=== PATIENT | male | born 1950 | race Caucasian/White ===

== ENCOUNTER → 2024-01-26 10:41 | Outpatient (REF) | payer MEDICARE, BC, SELFPAY ==
[2024-01-26 13:06] LABS: ALT (SGPT) 20 U/L (0-50); AST (SGOT) 24 U/L (17-59); Albumin 4.3 g/dl (3.5-5.0); Alkaline Phosphatase 54 U/L (38-126); Blood Urea Nitrogen 22 mg/dl (9-20); Calcium 9.6 mg/dl (8.4-10.2); Carbon Dioxide 25 mmol/L (22-30); Chloride 108 mmol/L (98-107); Glucose 163 mg/dl (70-99); HDL Cholesterol 72 mg/dl; LDL Cholesterol, Calculated 36 mg/dl; Potassium 5.3 mmol/L (3.5-5.1); Sodium 136 mmol/L (135-145); Total Bilirubin 0.5 mg/dl (0.2-1.3); Total Cholesterol 121 mg/dl (50-199); Total Protein 6.7 g/dl (6.3-8.2); Triglyceride 67 mg/dl (10-149); Very Low Density Lipoprotein 13 mg/dl (0-30); eGFR > 60.00
[2024-01-26 13:16] LABS: Microalbumin, Random Urine 9.6 mg/dl (0.6-1.7); Microalbumin/creatinine Ratio 100.3 mg/g
== END ==
LOC: HWLAB 10:41
PROVIDERS: ATTENDING PHYSICIAN Internal Medicine Endocrinology, Diabetes & Metabolism; FAMILY PHYSICIAN Family Medicine
DX: E11.65 Type 2 diabetes mellitus with hyperglycemia (principal); I25.10 Atherosclerotic heart disease of native coronary artery without angina pectoris
CPT/HCPCS: 36415; 80053; 80061; 82043; 82570; 83036

== ENCOUNTER → 2024-02-02 12:35 | Outpatient (REF) | payer MEDICARE, BC, SELFPAY | LOC: HWRCS 12:35 | PROVIDERS: ATTENDING PHYSICIAN Internal Medicine Cardiovascular Disease; FAMILY PHYSICIAN Family Medicine | DX: I35.1 Nonrheumatic aortic (valve) insufficiency (principal) | CPT/HCPCS: 93306 ==

== ENCOUNTER 2024-02-25 20:33 | Observation (INO) | payer MEDICARE, BC, SELFPAY ==
[2024-02-25 15:17] VITALS: BP 151/73
[2024-02-25 15:32] LABS: % Basophils 0.4 % (0-2); % Eosinophils 0.6 % (0-6); % Immature Granulocytes 0.3 % (0-0.5); % Lymphocytes 23.7 % (20.5-51.1); % Monocytes 12.5 % (1.7-9.3); % Neutrophils 62.5 % (42.2-75.2); Absolute Eosinophils 0.1 10^3/uL (0-0.7); Absolute Lymphocytes 1.9 10^3/uL (1.2-3.4); Absolute Neutrophils 4.9 10^3/uL (1.4-6.5); Hematocrit 38.8 % (39.0-52.0); Hemoglobin 13.1 g/dL (13.0-18.0); Mean Corp Hgb Conc. 33.8 g/dL (33.0-37.0); Mean Corpuscular Hgb 30.9 pg (27.0-31.0); Mean Corpuscular Volume 91.5 fL (80.0-94.0); Mean Platelet Volume 10.1 fL (7.4-10.4); Nucleated Red Blood Cells % 0 % (-); Platelet Count 179 10^3/uL (130-400); Red Blood Cell Count 4.24 10^6/uL (4.70-6.10); Red Cell Dist. Width 13.9 % (11.5-14.5); White Blood Cell Count 7.9 10^3/uL (4.8-10.8)
[2024-02-25 15:53] LABS: ALT (SGPT) 17 U/L (0-50); AST (SGOT) 24 U/L (17-59); Albumin 4.7 g/dl (3.5-5.0); Blood Urea Nitrogen 27 mg/dl (9-20); Calcium 9.7 mg/dl (8.4-10.2); Carbon Dioxide 21 mmol/L (22-30); Chloride 103 mmol/L (98-107); Glucose 183 mg/dl (70-99); Lipase 71 U/L (23-300); Potassium 4.6 mmol/L (3.5-5.1); Sodium 135 mmol/L (135-145); Total Protein 7.4 g/dl (6.3-8.2); eGFR 30.47
[2024-02-25 16:03] LABS: Alkaline Phosphatase 48 U/L (38-126); Total Bilirubin 0.7 mg/dl (0.2-1.3)
[2024-02-25] MEDS: NSS 1000 IV ×2 (16:10→23:12)
[2024-02-25] MEDS: ZOFRAN 4 MG IV (16:11)
--- NOTE | 2024-02-25 16:15 | ED.GENMED ---
History of Present Illness
General
Chief Complaint: Medication Reaction
Source: patient and records
Exam Limitations: none
Time Seen by Provider: 02/25/24 15:55
Nursing documentation reviewed up to this point in time: agreed with
Travel History
Have you had any contact with someone who has COVID-19?: No
Do you have any symptoms of coronavirus? Fever > 100 degrees, chills, cough, shortness of breath, sore throat, loss of taste or smell, muscle aches, or headache?: No
History of Present Illness
History of Present Illness:
73-year-old male type II diabetic CAD pacemaker hypertensive has been on Mounjaro took 2 doses since taking 2 weekly doses has had constipation and abdominal pain no fever nausea without vomiting, no diarrhea--- prescribed by his brattice builder, he
has had an appendectomy, still has his gallbladder apparently, he tells me last night pain was fairly severe in his mid abdomen into his low back pains were different than his anginal chest pains that he said previously
Past History
Past History
ED Past Medical History: CAD, HTN, Hypercholesterolemia, NIDDM, [place], Other (Pituitary meningioma), Other (glaucoma, OA,) and Other (BPV)
ED Past Surgical History: Appendectomy and Other (Transsphenoidal resection of a pituitary meningioma)
Social History
Tobacco: Non-smoker
Alcohol: None
Drug: None
Living: with family
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
Family History
Family History: CAD
Review of Systems
Review of Systems
All Other Systems: Not applicable
Constitutional: Denies fever or fatigue
EENT: Reports no symptoms
Respiratory: Reports no symptoms
Cardiac: Reports no symptoms
ABD/GI: Reports abdominal pain, nausea and constipated; Denies diarrhea
: Reports no symptoms
Musculoskeletal: Reports back pain
Skin: Reports no symptoms
Neurological: Reports no symptoms
Phy Exam
Physical Exam
Physical Exam:
Physical Exam
General: Elderly male nontoxic mild distress
Neck: No jaundice
Heart: s1/s2 regular rate and rhythm, no murmur. equal radial pulses.
Lungs: no acute respiratory distress. clear bilaterally
Abdomen: Soft mild lower abdominal tenderness right greater than left
Neuro: alert and oriented. no focal neurological deficits
Skin: no rash
Psychiatric: well kept. interactive and cooperative
Extremities: no edema.
Course
Orders/Labs/Results
Orders:
Orders
02/25/24 15:27
B-Hydroxybutyrate Urgent
Comment: ADD ON
Complete Blood Count/With Diff Urgent
Comprehensive Metabolic Panel Urgent
Lipase Urgent
02/25/24 15:56
Electrocardiogram (*1) Urgent
Reason for Study: Abdominal Pain
EKG- Treatment ONCE
02/25/24 16:02
0.9% Sodium Chloride 1000 ml [Nss] 1,000 ml IV BOLUS
Ondansetron Injectable [Zofran] 4 mg IV NOW STA
02/25/24 16:10
Urinalysis Reflex To Culture Urgent
Date Specimen was Collected: 02/25/24
Time Specimen was Collected: 16:17
02/25/24 16:11
CT Abd/pel Without Iv Or Oral Urgent
Comment:
Reason For Exam: ever pain
US Abdomen Complete/Upper Urgent
Comment:
Reason For Exam: pain
02/25/24 17:35
Add On- LAB Urgent
Tests Added?: Beta hydroxybutyrate
02/25/24 19:31
HYDROmorphone [Dilaudid] 0.5 mg IV NOW STA
02/25/24 19:45
0.9% Sodium Chloride 1000 ml [Nss] 1,000 ml IV 150 mls/hr
Abnormal Lab Results
02/25/24
15:27
RBC 4.24 L 10^6/uL
(4.70-6.10)
Hct 38.8 L %
(39.0-52.0)
Absolute Monos (auto) 1.0 H 10^3/uL
(0.1-0.6)
Monocytes % 12.5 H %
(1.7-9.3)
Carbon Dioxide 21 L mmol/L
(22-30)
BUN 27 H mg/dl
(9-20)
Creatinine 2.2 H mg/dL
(0.7-1.3)
Glucose 183 H mg/dl
(70-99)
02/25/24 15:27
02/25/24 15:27
Vital Signs
Initial and Last Documented VS:
Initial Vital Signs
Temp Pulse Resp BP Pulse Ox
97.9 F 61 18 151/73 100
02/25/24 15:17 02/25/24 15:17 02/25/24 15:17 02/25/24 15:17 02/25/24 15:17
Last Documented Vital Signs
Temp Pulse Resp BP Pulse Ox
97.9 F 64 15 139/76 97
02/25/24 15:17 02/25/24 18:24 02/25/24 18:24 02/25/24 18:24 02/25/24 18:24
MDM/Problems Addressed
Differential Diagnosis Includes:
Medication effect cholecystitis medication effect acute renal insufficiency pancreatitis less likely ACS or bowel obstruction
MDM/Problems Addressed:
Abdominal pain
Chronic conditions affecting care: DM, HTN, CAD and Previous abdomnial surgery
Acute Exacerbation and/or Progression of Chronic Illness: DM, HTN, CAD and Previous abdomnial surgery
*Radiology
Radiology exam reviewed: preliminary read by ED provider
*Pulse Oximetry
Patient hypoxic: no
*EKG
Interpreted by ED Provider?: Yes
Interpretation: abnormal
Comparison EKG: no comparison EKG present
Heart Rate: 78
Rate: normal
Rhythm: sinus
Ischemia: non-specific ST changes
*World Travel Counselor Interpretation
Rate: normal
Interpretation: normal
Heart Rate: 78
Rhythm: sinus
*Critical Care Note
Total Time (30-74mins, 75-104mins- exclusive of procedures): Not Applicable
Update Note
Update Note:
Update 7:30 PM labs noted ultrasound noted CAT scan noted patient without fever, urinalysis is pending will require admission due to EVER potential for obstruction, still having some pain obviously hold on NSAIDs, start narcotics message sent to
on-call hospitalist and urology
ED Attending Note
-
Portions of this chart may have been created with voice recognition software.� Occasional wrong word or��sound alike� substitutions may have occurred due to the inherent limitations of voice recognition software.
Discharge Plan
Departure
Patient Disposition: Admit
Date of Disposition: 02/25/24
Time of Disposition: 19:34
Admit to: Med/Surg
Presentation/result/management discussed w/ accepting MD/DO: Hospitalist
Patient with high blood pressure during this ER visit?: No
Condition: Fair
Discharge Problem:
EVER (acute kidney injury), Ureter colic
Prescriptions:
No Action
losartan 25 MG tablet
25 mg PO HS
rosuvastatin 20 MG tablet
20 mg PO Q48H
rosuvastatin [Crestor] 40 MG tablet
40 mg PO Q48H
glipizide 10 MG tablet
10 mg PO BID@0800,1700
atenolol 25 MG tablet
25 mg PO HS
pioglitazone 45 MG tablet
45 mg PO DAILY
aspirin 81 MG tablet,delayed release (DR/EC)
81 mg PO DAILY
bupropion HCl 150 MG tablet extended release 24 hr
150 mg PO DAILY
nitroglycerin 0.4 MG tablet, sublingual
0.4 mg sublingual [id number] PRN (Reason: chest pain) Qty: 25 10RF
metformin 1,000 MG tablet
1,000 mg PO BID@0800,1700
ondansetron 4 mg tablet,disintegrating
4 mg PO Q6H PRN (Reason: nausea and vomiting) Qty: 30 0RF
meclizine 25 MG tablet
25 mg PO TID PRN (Reason: vertigo) 20 Days Qty: 60 0RF
diazepam [Valium] 5 MG tablet
5 mg PO DAILY PRN (Reason: vertigo not relieved w/ mecliz) 15 Days Qty: 15 0RF
Referrals:
Deuce De Leon MD [Family Provider] -
Interventions
Interventions:
*General Assessment Last Done: 02/25/24 15:17
*ED COVID-19 Vaccine History Last Done: 02/25/24 15:17
ED-Skin Assessment Last Done: 02/25/24 16:19
ED- Pulmonary Assessment Last Done: 02/25/24 16:18
Discharge Date and Time
Print Language: KHMER
[2024-02-25 17:05] VITALS: BMI 32.9
[2024-02-25 18:22] LABS: B-Hydroxybutyrate 0.12 mmol/L (0.02-0.27)
[2024-02-25 18:24] VITALS: BP 139/76
[2024-02-25] MEDS: DILAUDID 0.5 MG IV (19:42)
--- NOTE | 2024-02-25 19:59 | HPS.HSE ---
Family Physician
-
Family Physician: Deuce De Leon
Chief Complaint
-
abdominal pain
History of Present Illness
73-year-old male past medical history of bladder stone, type 2 diabetes, CAD status post stent, pacemaker, hypertension, hypercholesterolemia, meningioma s/p resection, glucoma, osteoarthritis, presenting with abdominal pain across his lower abdomen
radiating to the right flank and middle of his back started 4 days ago and getting worse. He denies any urinary symptoms such as burning or frequency or blood in the urine. He is nauseous but denies vomiting. He has had decreased p.o. intake. He
denies any diarrhea. He has had chills.
He was recently started on Mounjaro by his wildlife protector and since then he has been feeling unwell with symptoms of nausea
Medical History
Past Medical History
Past Medical History: Reports Other (bladder stone, type 2 diabetes, CAD status post stent, pacemaker, hypertension, hypercholesterolemia, meningioma s/p resection, glucoma, osteoarthritis,)
Past Surgical History: Reports Other (Appendectomy and Other (Transsphenoidal resection of a pituitary meningioma))
Social History
Tobacco: Non-smoker
Alcohol: Occasional
Drug: None
Family History
Family History: Not pertinent
Allergies / Home Medications
Allergies reflects when Allergies were last updated in [employer].
Home Medications with original date entered in [employer]
Allergy/Medication List:
Allergies
Allergy/AdvReac Type Severity Reaction Status Date / Time
Iodinated Contrast Media Allergy hot flash Verified 02/25/24 15:21
[Iodinated Contrast- Oral
and IV Dye]
Home Medications
losartan 25 mg tablet 25 mg PO HS Blood pressure 02/05/17
rosuvastatin 20 mg tablet 20 mg PO Q48H High cholesterol 02/05/17
rosuvastatin 40 mg tablet (Crestor) 40 mg PO Q48H High cholesterol 02/05/17
atenolol 25 mg tablet 25 mg PO HS Blood pressure 04/30/17
glipizide 10 mg tablet 10 mg PO BID@0800,1700 Diabetes 04/30/17
aspirin 81 mg tablet,delayed release 81 mg PO DAILY Blood clot prevention/tx 09/08/19
bupropion HCl 150 mg 24 hr tablet, extended release 150 mg PO DAILY Mental Health/Anxiety 09/08/19
nitroglycerin 0.4 mg sublingual tablet 0.4 mg sublingual [id number] PRN chest pain #25 tabs 09/08/19
pioglitazone 45 mg tablet 45 mg PO DAILY Diabetes 09/08/19
metformin 1,000 mg tablet 1,000 mg PO BID@0800,1700 Diabetes 08/31/20
diazepam 5 mg tablet (Valium) 5 mg PO DAILY PRN vertigo not relieved w/ mecliz 15 days #15 tabs 07/02/22
meclizine 25 mg tablet 25 mg PO TID PRN vertigo 20 days #60 tabs 07/02/22
ondansetron 4 mg disintegrating tablet 4 mg PO Q6H PRN nausea and vomiting #30 tabs 07/02/22
Review of Systems
-
History Source: Patient
A 12 point ROS was completed and negative except as noted: Yes
Constitutional: Reports No Symptoms
EENT: Reports No Symptoms
Respiratory: Reports No Symptoms
Cardiac: Reports No Symptoms
Abdomen/GI: Reports See HPI
: Reports See HPI
Musculoskeletal: Reports No Symptoms
Skin: Reports No Symptoms
Neurological: Reports No Symptoms
Endocrine: Reports No Symptoms
Hematologic/Lymphatic: Reports No Symptoms
Psych: Reports No Symptoms
Physical Exam
Vital Signs
Vital Signs
Temp Pulse Resp BP Pulse Ox
97.9 F 64 15 139/76 97
02/25/24 15:17 02/25/24 18:24 02/25/24 18:24 02/25/24 18:24 02/25/24 18:24
Physical Exam
General: Well Developed, Well Nourished and No Apparent Distress
HEENT: NormoCephalic, Moist mucous membranes and Atraumatic
Respiratory: Clear
Cardiac: S1/S2 and Regular Rhythm; No Murmur or Rub
GI: Soft, Non Distended, Normal Bowel Sounds and Tender; No Organomegaly
Rectal: Deferred by Provider
Genito-urinary: Costovertebral angle tend
Musculoskeletal: No Clubbing, No Cyanosis and No Edema
Skin: No Rash
Neuro: Nonfocal/grossly intact
Laboratory Results
-
02/25/24 15:27
02/25/24 15:27
Laboratory Results
Total Bilirubin 0.7 mg/dl (0.2-1.3) 02/25/24 15:27
AST 24 U/L (17-59) 02/25/24 15:27
ALT 17 U/L (0-50) 02/25/24 15:27
Alkaline Phosphatase 48 U/L (38-126) 02/25/24 15:27
Lipase 71 U/L (23-300) 02/25/24 15:27
Data Reviewed
-
Lab Data: Labs Reviewed by me
Old Records: Reviewed
Impression/Plan
-
IMPRESSION:
PLAN:
# Proximal right ureteral calculus with right hydroureteronephrosis and moderate right perinephric stranding
-Urinalysis pending
-IV fluids
-Dilaudid for pain
-Ceftriaxone
-Tamsulosin
-Urology consulted
# Acute kidney injury
-IV fluids
-Hold losartan
Coronary artery disease
-Continue aspirin
-Continue statin
Essential hypertension
-Continue atenolol
Type 2 diabetes
-Hold glipizide, metformin, pioglitazone
-Insulin sliding scale
Pituitary meningioma status postresection
Glaucoma
Osteoarthritis
Anxiety/depression
-Continue bupropion, diazepam
Full code
DVT prophylaxis�heparin
Regular diet
[2024-02-25] MEDS: FLOMAX 0.400000000000000022 MG PO (20:02)
[2024-02-25 20:13] VITALS: BP 146/64
[2024-02-25 21:15] VITALS: BP 130/69; BMI 31.4
[2024-02-25 21:31] LABS: Glucose - Point of Care 104 mg/dl (70-99)
[2024-02-25 23:00] VITALS: BP 135/65
[2024-02-25] MEDS: TENORMIN 25 MG PO (23:13)
[2024-02-25] MEDS: ROCEPHIN 1000 MG IV (23:13)
[2024-02-25] MEDS: STERILE WATER FOR INJECTION 10 ML IV (23:13)
[2024-02-25] MEDS: HEPARIN 5000 UNITS SC (23:13)
[2024-02-26] MEDS: NSS 1000 IV ×3 (05:27→23:33)
[2024-02-26 07:25] VITALS: BP 121/63
[2024-02-26 07:49] LABS: % Basophils 0.5 % (0-2); % Eosinophils 1.2 % (0-6); % Immature Granulocytes 0.2 % (0-0.5); % Lymphocytes 31.8 % (20.5-51.1); % Monocytes 16.6 % (1.7-9.3); % Neutrophils 49.7 % (42.2-75.2); Absolute Eosinophils 0.1 10^3/uL (0-0.7); Absolute Lymphocytes 2.1 10^3/uL (1.2-3.4); Absolute Monocytes 1.1 10^3/uL (0.1-0.6); Absolute Neutrophils 3.3 10^3/uL (1.4-6.5); Hematocrit 35.9 % (39.0-52.0); Hemoglobin 11.8 g/dL (13.0-18.0); Mean Corp Hgb Conc. 32.9 g/dL (33.0-37.0); Mean Corpuscular Hgb 30.8 pg (27.0-31.0); Mean Corpuscular Volume 93.7 fL (80.0-94.0); Mean Platelet Volume 10.6 fL (7.4-10.4); Nucleated Red Blood Cells % 0 % (-); Platelet Count 163 10^3/uL (130-400); Red Blood Cell Count 3.83 10^6/uL (4.70-6.10); Red Cell Dist. Width 14.1 % (11.5-14.5); White Blood Cell Count 6.6 10^3/uL (4.8-10.8)
[2024-02-26 08:39] LABS: ALT (SGPT) 11 U/L (0-50); AST (SGOT) 20 U/L (17-59); Albumin 3.6 g/dl (3.5-5.0); Alkaline Phosphatase 48 U/L (38-126); Blood Urea Nitrogen 20 mg/dl (9-20); Calcium 8.8 mg/dl (8.4-10.2); Carbon Dioxide 22 mmol/L (22-30); Chloride 109 mmol/L (98-107); Estimated Creatinine Clearance 34 ml/min; Glucose 116 mg/dl (70-99); Potassium 4.7 mmol/L (3.5-5.1); Sodium 138 mmol/L (135-145); Total Bilirubin 0.5 mg/dl (0.2-1.3); Total Protein 5.9 g/dl (6.3-8.2); eGFR 34.16
[2024-02-26] MEDS: HEPARIN 5000 UNITS SC ×2 (08:40→21:45)
[2024-02-26] MEDS: NOVOLOG FLEXPEN-LOW RESISTANCE SC ×3 (08:40→19:30)
[2024-02-26] MEDS: WELLBUTRIN XL (24 hour extended release) 150 MG PO (08:40)
[2024-02-26] MEDS: ASPIR LOW (ENTERIC COATED) 81 MG PO (08:40)
--- NOTE | 2024-02-26 11:00 | W.PN.URO.CBU ---
Today's Communication / Plan
-
Continue trial of stone passage
Continue tamsulosin
Strain urine
No plans for OR at this time
Assessment / Plan
-
Partially obstructing 3-4 mm right proximal ureteral stone
EVER: improving
Right renal colic: resolved
Diagnosis
-
Date of Service: February 26, 2024
-
Patient Diagnosis:
Right renal colic: resolved
Partially obstructing 3-4 mm right proximal ureteral stone with associated right hydroureteronephrosis
EVER
No voiding dysfunction or gross hematuria
---
History of bladder calculus (passed) complicated by urosepsis
History of erectile dysfunction s/p penile prosthesis placement
Subjective
-
Comfortable this morning
c/o suprapubic pressure
Objective
-
Vital Signs
Temp Pulse Resp BP Pulse Ox
97.6 F 65 17 121/63 99
02/26/24 07:25 02/26/24 07:25 02/26/24 07:25 02/26/24 07:25 02/26/24 07:25
Intake and Output
02/25/24 02/26/24 02/27/24
06:59 06:59 06:59
Intake Total 1440 / 1440
Balance 1440 / 1440
Intake:
Oral fluids 240 / 240
IV fluids (Total) 1200 / 1200
Other:
Number of approximated MODERATE 2
amounts of urine
Laboratory Results
02/26/24 07:03
02/26/24 07:03
02/25/24 CT scan images personally reviewed
Review of Systems
-
Constitutional: No Symptoms
Respiratory: No Symptoms
Cardiac: No Symptoms
Abdomen/GI: Abdominal Pain
: No Symptoms
Neurological: No Symptoms
Physical Exam
-
General - well developed, well nourished, no acute distress
Abdomen - soft, non-tender
Skin - warm & dry with no rash
Neuro - AOx3, no motor deficits
[2024-02-26 12:46] LABS: Glucose - Point of Care 146 mg/dl (70-99)
[2024-02-26 15:15] VITALS: BP 144/67
[2024-02-26] MEDS: DILAUDID 0.5 MG IV (16:57)
[2024-02-26 17:18] LABS: Urine Albumin Trace (Neg - Trace); Urine Bilirubin Negative (Negative); Urine Character Clear (Clear); Urine Color Yellow; Urine Glucose 1+ (Negative); Urine Ketone Negative (Negative); Urine Leukocyte Negative (Negative); Urine Nitrite Negative (Negative); Urine Occult Blood 4+ (Negative); Urine Urobilinogen Negative (Neg - 1+)
[2024-02-26 17:19] LABS: Glucose - Point of Care 199 mg/dl (70-99)
[2024-02-26 18:04] LABS: Urine Bacteria Few (Negative); Urine Granular Cast 0-2 /LPF (0); Urine Mucus Few; Urine Red Cell Cast 0-2 /LPF
--- NOTE | 2024-02-26 20:26 | W.PN.HOSP.TC ---
Today's Communication/Plan
-
Continue antibiotics
Follow cultures
Trial of stone passage
Strain urine
Assessment / Plan
Assessment / Plan
Physical Exam
General: Well Developed, Well Nourished and No Apparent Distress
HEENT: Normocephalic, Moist mucous membranes and Atraumatic
Respiratory: Clear
Cardiac: S1/S2 and Regular Rhythm; No Murmur or Rub
GI: Soft, Non Distended, Normal Bowel Sounds and Tender
Musculoskeletal: No Cyanosis and No Edema
Skin: Warm. Dry.
Neuro: Nonfocal/grossly intact
Assessment/Plan
# Proximal right ureteral calculus with right hydroureteronephrosis and moderate right perinephric stranding
-Urinalysis noted
-Follow urine and blood cultures
-IV fluids
-Dilaudid for pain
-Continue Ceftriaxone
-Tamsulosin
-Urology consulted
-Continue trial of stone passage
-Strain urine
# Acute kidney injury
-IV fluids
-Hold losartan
Coronary artery disease
-Continue aspirin
-Continue statin
Essential hypertension
-Continue atenolol
Type 2 diabetes
-Hold glipizide, metformin, pioglitazone
-Insulin sliding scale
Pituitary meningioma status postresection
Glaucoma
Osteoarthritis
Anxiety/depression
-Continue bupropion, diazepam
Full code
DVT prophylaxis�heparin
Regular diet
Anticipated Discharge: 24 - 48 hours
Subjective/Interval History
-
Date of Service: February 26, 2024
Patient was seen and examined. He reported feeling better than when he came in. He denied any new symptoms or complaints.
Objective Data
-
Labs:
Laboratory Results
02/26/24
07:03
Sodium 138
Potassium 4.7
Chloride 109 H
Carbon Dioxide 22
BUN 20
Creatinine 2.0 H
Glucose 116 H
Calcium 8.8
Total Bilirubin 0.5
AST 20
ALT 11
Alkaline Phosphatase 48
Vital Signs:
Vital Signs
Temp Pulse Resp BP Pulse Ox
98.1 F 62 17 144/67 100
02/26/24 15:15 02/26/24 15:15 02/26/24 15:15 02/26/24 15:15 02/26/24 15:15
I&O
02/25/24 02/26/24 02/27/24
06:59 06:59 06:59
Intake Total 0 / 0
Balance 2519 / 2519
[2024-02-26] MEDS: CRESTOR 20 MG PO (21:45)
[2024-02-26] MEDS: ROCEPHIN 1000 MG IV (21:46)
[2024-02-26] MEDS: STERILE WATER FOR INJECTION 10 ML IV (21:46)
[2024-02-26 21:55] VITALS: BP 114/48
[2024-02-26] MEDS: TENORMIN PO (22:19)
[2024-02-26 22:51] LABS: Glucose - Point of Care 240 mg/dl (70-99)
[2024-02-26 23:10] VITALS: BP 155/68
[2024-02-26] MEDS: NOVOLOG FLEXPEN-LOW RESISTANCE 2 UNITS SC (23:37)
[2024-02-27 07:20] VITALS: BP 155/70
[2024-02-27 07:37] LABS: Glucose - Point of Care 129 mg/dl (70-99)
[2024-02-27] MEDS: NOVOLOG FLEXPEN-LOW RESISTANCE SC (08:06)
[2024-02-27] MEDS: ASPIR LOW (ENTERIC COATED) 81 MG PO (08:09)
[2024-02-27] MEDS: WELLBUTRIN XL (24 hour extended release) 150 MG PO (08:09)
[2024-02-27 08:10] LABS: % Basophils 0.4 % (0-2); % Eosinophils 1.6 % (0-6); % Immature Granulocytes 0.1 % (0-0.5); % Lymphocytes 28.3 % (20.5-51.1); % Monocytes 14.7 % (1.7-9.3); % Neutrophils 54.9 % (42.2-75.2); Absolute Eosinophils 0.1 10^3/uL (0-0.7); Absolute Neutrophils 3.8 10^3/uL (1.4-6.5); Hemoglobin 11.8 g/dL (13.0-18.0); Mean Corp Hgb Conc. 32.8 g/dL (33.0-37.0); Mean Corpuscular Hgb 30.9 pg (27.0-31.0); Mean Corpuscular Volume 94.2 fL (80.0-94.0); Mean Platelet Volume 10.3 fL (7.4-10.4); Nucleated Red Blood Cells % 0 % (-); Platelet Count 157 10^3/uL (130-400); Red Blood Cell Count 3.82 10^6/uL (4.70-6.10); Red Cell Dist. Width 13.8 % (11.5-14.5)
[2024-02-27] MEDS: HEPARIN 5000 UNITS SC (08:11)
[2024-02-27 08:53] LABS: ALT (SGPT) 14 U/L (0-50); AST (SGOT) 18 U/L (17-59); Albumin 3.8 g/dl (3.5-5.0); Alkaline Phosphatase 53 U/L (38-126); Blood Urea Nitrogen 16 mg/dl (9-20); Carbon Dioxide 23 mmol/L (22-30); Chloride 109 mmol/L (98-107); Estimated Creatinine Clearance 43 ml/min; Glucose 139 mg/dl (70-99); Magnesium 1.9 mg/dl (1.6-2.3); Potassium 4.2 mmol/L (3.5-5.1); Total Bilirubin 0.7 mg/dl (0.2-1.3); Total Protein 6.3 g/dl (6.3-8.2); eGFR 44.65
[2024-02-27 08:59] LABS: Sodium 140 mmol/L (135-145)
--- NOTE | 2024-02-27 10:33 | CM ---
Addendum entered by Violet Solis 02/27/24 15:04:
Plan: Discharge to home; no needs
Original Note:
Met with patient at the bedside; initial assessment completed
GENAO form explained and signed @ 1010
Pharmacy verified: [facility] ([facility]
Patient reports he lives with ; multilevel home; 5 steps to enter; 13 steps between floors; Master bedroom and bathroom on the 1st floor; walk-in shower, seat, grab bar
PLOF: patient reported that he is independent with ambulation, stairs, and ADLs; drives; still works
DME: Continuous Glucose Monitor
SNF/Rehab/Home Health utilization history: none
Transportation: or family will transport home
Plan: discharge to home when medically stable; no needs anticipated
--- NOTE | 2024-02-27 11:34 | W.PN.URO.CBU ---
Today's Communication / Plan
-
Cleared for discharge from standpoint to continue outpatient trial of stone passage
Assessment / Plan
-
Partially obstructing 3-4 mm right proximal ureteral stone
EVER: improving
Right renal colic: resolved
Diagnosis
-
Date of Service: February 27, 2024
-
Patient Diagnosis:
Right renal colic: resolved
Partially obstructing 3-4 mm right proximal ureteral stone with associated right hydroureteronephrosis
EVER: continues to improve
No voiding dysfunction or gross hematuria
---
History of bladder calculus (passed) complicated by urosepsis
History of erectile dysfunction s/p penile prosthesis placement
Subjective
-
Pain free
Objective
-
Vital Signs
Temp Pulse Resp BP Pulse Ox
97.9 F 64 17 155/70 99
02/27/24 07:20 02/27/24 07:20 02/27/24 07:20 02/27/24 07:20 02/27/24 07:20
Intake and Output
02/26/24 02/27/24 02/28/24
06:59 06:59 06:59
Intake Total 3900 / 3900
Balance 3900 / 3900
Intake:
Oral fluids 1800 / 1800
IV fluids (Total) 2100 / 2100
Other:
Number of approximated SMALL 2
amounts of urine
Number of approximated MODERATE 3
amounts of urine
Laboratory Results
02/27/24 07:59
02/27/24 07:59
Review of Systems
-
Constitutional: No Symptoms
Respiratory: No Symptoms
Cardiac: No Symptoms
Abdomen/GI: No Symptoms
: No Symptoms
Neurological: No Symptoms
Physical Exam
-
General - well developed, well nourished, no acute distress
Abdomen - soft, non-tender
Counseling
-
Discussed with Hospitalist
[2024-02-27 11:42] LABS: Glucose - Point of Care 316 mg/dl (70-99)
[2024-02-27] MEDS: NOVOLOG FLEXPEN-LOW RESISTANCE 4 UNITS SC (13:11)
--- NOTE | 2024-02-27 13:32 | W.PN.HOSP.TC ---
Today's Communication/Plan
-
Discharge today
Assessment / Plan
Assessment / Plan
Physical Exam
General: Well Developed, Well Nourished and No Apparent Distress
HEENT: Normocephalic, Moist mucous membranes and Atraumatic
Respiratory: Clear
Cardiac: S1/S2 and Regular Rhythm
GI: Soft, Non Distended, Normal Bowel Sounds and Tender
Musculoskeletal: No Cyanosis and No Edema
Skin: Warm. Dry.
Neuro: Nonfocal/grossly intact
Assessment/Plan
# Proximal right ureteral calculus with right hydroureteronephrosis and moderate right perinephric stranding
-Urinalysis noted
-Urine and blood cultures pending
-Statu post IV fluids
-Continue Ceftriaxone while inpatient
-Cefpodoxime 200 mg BID for 7 days
-Tamsulosin
-Urology consulted: okay for discharge today
-Continue trial of stone passage
-Strain urine
-Follow-up urologist Dr. Zhu in the next 1 to 2 weeks
# Acute kidney injury - IMPROVING
-Status post IV fluids
-Hold losartan
Coronary artery disease
-Continue aspirin
-Continue statin
Essential hypertension
-Continue atenolol
Type 2 diabetes
-Hold glipizide, metformin, pioglitazone
-Insulin sliding scale
-Contact Dr. Parry (your storekeeper helper) about your Diabetes Medications
Pituitary meningioma status postresection
Glaucoma
Osteoarthritis
Anxiety/depression
-Continue bupropion, diazepam
Full code
DVT prophylaxis�heparin
Low sodium, carb-controlled diet
More than 30 minutes spent in discharge including
Final examination of the patient
Summarizing hospital stay
Instructions for continuing care to all relevant caregivers
Preparation of discharge records, prescriptions, and referral forms
Total time spent (in minutes): 40
Anticipated Discharge: Today
Subjective/Interval History
-
Date of Service: February 27, 2024
Patient was seen and examined. He reported no abdominal pain and has been having clear urine. He denied any fever or any other complaints.
Objective Data
-
Labs:
Laboratory Results
02/27/24
07:59
WBC 7.0
Hgb 11.8 L
Hct 36.0 L
Plt Count 157
Sodium 140
Potassium 4.2
Chloride 109 H
Carbon Dioxide 23
BUN 16
Creatinine 1.6 H
Glucose 139 H
Calcium 9.0
Total Bilirubin 0.7
AST 18
ALT 14
Alkaline Phosphatase 53
Vital Signs:
Vital Signs
Temp Pulse Resp BP Pulse Ox
97.9 F 64 17 155/70 99
02/27/24 07:20 02/27/24 07:20 02/27/24 07:20 02/27/24 07:20 02/27/24 07:20
I&O
02/26/24 02/27/24 02/28/24
06:59 06:59 06:59
Intake Total 3900 / 3900
Balance 3900 / 3900
--- NOTE | 2024-02-27 14:25 | W.DS.TRANS ---
DC Summary - On Site Coordinator
-
Discharge Instructions:
Discharge Diagnosis/Procedures #Proximal right ureteral calculus with right
hydroureteronephrosis and moderate right
perinephric stranding
#Acute kidney injury - IMPROVING
#Coronary artery disease
#Essential hypertension
#Type 2 Diabetes Mellitus
#Pituitary meningioma status postresection
#Glaucoma
#Osteoarthritis
#Anxiety/depression
Diet Diabetic, Carb Controlled,Low Sodium,2 Gram
Sodium,Low Fat,Low Cholesterol
Activity As tolerated
Driving Restrictions As prior to admission
Instructions:
Stand-Alone Forms:
Changes to Home Medications: Yes
Discharge Medications:
DC Medications w/original date entered in [employer]
losartan 25 mg tablet 25 mg PO HS Blood pressure 02/05/17
rosuvastatin 20 mg tablet 20 mg PO Q48H High cholesterol 02/05/17
rosuvastatin 40 mg tablet (Crestor) 40 mg PO Q48H High cholesterol 02/05/17
atenolol 25 mg tablet 25 mg PO HS Blood pressure 04/30/17
glipizide 10 mg tablet 10 mg PO BID@0800,1700 Diabetes 04/30/17
aspirin 81 mg tablet,delayed release 81 mg PO DAILY Blood clot prevention/tx 09/08/19
bupropion HCl 150 mg 24 hr tablet, extended release 150 mg PO DAILY Mental Health/Anxiety 09/08/19
nitroglycerin 0.4 mg sublingual tablet 0.4 mg sublingual [id number] PRN chest pain #25 tabs 09/08/19
pioglitazone 45 mg tablet 45 mg PO DAILY Diabetes 09/08/19
metformin 1,000 mg tablet 1,000 mg PO BID@0800,1700 Diabetes 08/31/20
diazepam 5 mg tablet (Valium) 5 mg PO DAILY PRN vertigo not relieved w/ mecliz 15 days #15 tabs 07/02/22
meclizine 25 mg tablet 25 mg PO TID PRN vertigo 20 days #60 tabs 07/02/22
ondansetron 4 mg disintegrating tablet 4 mg PO Q6H PRN nausea and vomiting #30 tabs 07/02/22
cefpodoxime 200 mg tablet 200 mg PO Q12H 8 days #16 tabs 02/27/24
Home Medication Changes
Cefpodoxime is a new medication.
Glipizide, Losartan, and Metformin are on hold until outpatient follow-up.
Pending Results: Yes
Total time spent discharging patient (in min): 40
[2024-02-27 16:09] VITALS: BP 140/75
--- NOTE | 2024-03-01 11:20 | W.DCSUMMARY ---
Discharge Summary
Discharge Data
Date of Admission: 02/25/24
Date of Discharge: 02/27/24
Total time spent discharging patient (in min): 40
-
Pending Results: Yes
Additional Pending Results:
Microbiology lab studies
Hospital Course
73-year-old male with past medical history of bladder stone, type 2 diabetes mellitus, coronary artery disease status post stent, pacemaker, hypertension, hypercholesterolemia, meningioma status post resection, glaucoma, osteoarthritis, presented
with abdominal pain across his lower abdomen radiating to the right flank and middle of his back started 4 days prior to presentation, and getting worse. He denied any urinary symptoms such as burning or frequency or blood in the urine. Patient was
recently started on Mounjaro by his office equipment mechanic and since then he has been feeling unwell with symptoms of nausea. CT Abdomen Pelvis showed, as per radiologist's report, 'Approximate 3-4 mm calculus in the proximal right ureter with mild right
hydroureteronephrosis and moderate right perinephric stranding. Mild to moderate free stranding without findings to suggest left-sided obstructive uropathy. Tiny right lung nodules, stable, likely benign.' Abdominal ultrasound showed, as per
radiologist's report, 'No evidence of cholelithiasis, gallbladder wall thickening or biliary tract dilatation. 0.8 cm likely echogenic non-shadowing right lobe hepatic lesion. Most likely differential diagnostic possibility would be a hemangioma.
This could be confirmed with CT without and with intravenous contrast or MRI. Pancreas, abdominal aorta and IVC significantly obscured, most likely by overlying bowel gas. Suggestion of some minimal right renal collecting system dilatation with some
nonshadowing slightly echogenic material within, some differential diagnostic possibilities include tiny gravel-like stones or proteinaceous material. Recommend correlation with urinalysis.'
Patient was started on antibiotics and urology was consulted. Urology recommended trial of passage and straining the urine. Patient's pain and acute kidney injury were improving, and he was ready for discharge.
Discharge Plan
-
Patient Disposition: Home (Routine Discharge)
Discharge Diagnosis/Procedures: #Proximal right ureteral calculus with right hydroureteronephrosis and moderate right perinephric stranding
#Stable tiny right lung nodules
#0.8 cm likely echogenic non-shadowing right lobe hepatic lesion. Most likely differential diagnostic possibility would be a hemangioma (on imaging, as per radiologist's report))
#Acute kidney injury - IMPROVING
#Coronary artery disease
#Essential hypertension
#Type 2 Diabetes Mellitus
#Pituitary meningioma status postresection
#Glaucoma
#Osteoarthritis
#Anxiety/depression
Condition: Fair
Diet: Low Fat, Low Cholesterol, Low Sodium, 2 Gram Sodium and Diabetic, Carb Controlled
Activity: As tolerated
Driving Restrictions: As prior to admission
Activity Restrictions/Additional Instructions:
Contact Dr. Parry (your office equipment mechanic) about your Diabetes Medications and guidance regarding those
Referrals:
Deuce De Leon MD [Family Provider] - in less than 1 week
Nicholas Zhu MD [Active] - in one to two weeks
Quita Hanson DO [Active] - in three to four weeks (Patient needs an appointment set up and pulmonary office needs to call him for further evaluation and follow-up of lung nodules)
Ivonne Faith MD [Active] - in two to four weeks (Right Hepatic Lobe Lesion -- needs GI follow-up -- patient needs appointment set up and gastroenterology office needs to call him for appointment)
Additional Discharge Medication Instructions: Cefpodoxime is a new medication.
Tamsulosin is a new medication.
Glipizide, Losartan, and Metformin are on hold until outpatient follow-up.
Prescriptions:
New
cefpodoxime 200 mg tablet
200 mg PO Q12H 8 Days Qty: 16 0RF
tamsulosin 0.4 mg capsule
0.4 mg PO DAILY Qty: 14 1RF
Continued
rosuvastatin 20 MG tablet
20 mg PO Q48H
rosuvastatin [Crestor] 40 MG tablet
40 mg PO Q48H
atenolol 25 MG tablet
25 mg PO HS
pioglitazone 45 MG tablet
45 mg PO DAILY
aspirin 81 MG tablet,delayed release (DR/EC)
81 mg PO DAILY
bupropion HCl 150 MG tablet extended release 24 hr
150 mg PO DAILY
nitroglycerin 0.4 MG tablet, sublingual
0.4 mg sublingual [id number] PRN (Reason: chest pain) Qty: 25 10RF
ondansetron 4 mg tablet,disintegrating
4 mg PO Q6H PRN (Reason: nausea and vomiting) Qty: 30 0RF
meclizine 25 MG tablet
25 mg PO TID PRN (Reason: vertigo) 20 Days Qty: 60 0RF
diazepam [Valium] 5 MG tablet
5 mg PO DAILY PRN (Reason: vertigo not relieved w/ mecliz) 15 Days Qty: 15 0RF
Held
losartan 25 MG tablet
25 mg PO HS
Hold Instructions: Resume on 03/02/24. Resume once your outpatient physicians re-evaluate you and say this is okay to resume this medication.
glipizide 10 MG tablet
10 mg PO BID@0800,1700
Hold Instructions: Resume on 03/01/24. Resume once your outpatient physicians re-evaluate you and say this is okay to resume this medication.
metformin 1,000 MG tablet
1,000 mg PO BID@0800,1700
Hold Instructions: Resume on 02/24/24. Resume once your outpatient physicians re-evaluate you and say this is okay to resume this medication.
Discharge Orders:
Discharge Patient (As Directed); Ordered 02/27/24
Ordered By: Shakeel Elizabeth
Discharge Date and Time
Discharge Date/Time: 02/27/24 16:20
Print Language: CZECH
== END 2024-02-27 16:20 | disposition home or self-care (01) ==
LOC: 3 WEST ACU 20:33
PROVIDERS: Emergency Medicine; ADMITTING PHYSICIAN Hospitalist; ATTENDING PHYSICIAN Hospitalist; CONSULT PHYSICIAN Specialist; EMERGENCY PHYSICIAN Emergency Medicine; FAMILY PHYSICIAN Family Medicine
DX: N13.2 Hydronephrosis with renal and ureteral calculous obstruction (principal); E11.9 Type 2 diabetes mellitus without complications; I25.10 Atherosclerotic heart disease of native coronary artery without angina pectoris; I10 Essential (primary) hypertension; E78.00 Pure hypercholesterolemia, unspecified; R11.0 Nausea; M19.90 Unspecified osteoarthritis, unspecified site; N17.9 Acute kidney failure, unspecified; F41.9 Anxiety disorder, unspecified; F32.A Depression, unspecified; H40.9 Unspecified glaucoma; R91.8 Other nonspecific abnormal finding of lung field; I25.2 Old myocardial infarction; Z95.0 Presence of cardiac pacemaker; Z79.84 Long term (current) use of oral hypoglycemic drugs; Z79.85 Long-term (current) use of injectable non-insulin antidiabetic drugs; Z82.49 Family history of ischemic heart disease and other diseases of the circulatory system; Z90.49 Acquired absence of other specified parts of digestive tract; Z95.5 Presence of coronary angioplasty implant and graft; Z91.041 Radiographic dye allergy status
CPT/HCPCS: 74176; 76700; 80053; 81003; 81015; 82010; 82962; 83036; 83690; 83735; 85025; 87040; 87086; 93005; 96361; 96374; 96375; 99285; G0378

== ENCOUNTER 2024-06-07 15:50 | Emergency (ER) | payer MEDICARE, BC, SELFPAY ==
[2024-06-07 16:04] VITALS: BP 125/65
[2024-06-07 16:36] LABS: Lactic Acid 2.1 mmol/L (0.7-2.0)
[2024-06-07 16:37] LABS: % Basophils 0.6 % (0-2); % Eosinophils 1.1 % (0-6); % Immature Granulocytes 0.2 % (0-0.5); % Lymphocytes 24.2 % (20.5-51.1); % Monocytes 12.9 % (1.7-9.3); Absolute Eosinophils 0.1 10^3/uL (0-0.7); Absolute Lymphocytes 1.3 10^3/uL (1.2-3.4); Absolute Monocytes 0.7 10^3/uL (0.1-0.6); Absolute Neutrophils 3.2 10^3/uL (1.4-6.5); Hematocrit 32.5 % (39.0-52.0); Hemoglobin 11.1 g/dL (13.0-18.0); Mean Corp Hgb Conc. 34.2 g/dL (33.0-37.0); Mean Corpuscular Hgb 31.4 pg (27.0-31.0); Mean Corpuscular Volume 92.1 fL (80.0-94.0); Mean Platelet Volume 10.5 fL (7.4-10.4); Nucleated Red Blood Cells % 0 % (-); Platelet Count 194 10^3/uL (130-400); Red Blood Cell Count 3.53 10^6/uL (4.70-6.10); Red Cell Dist. Width 14.8 % (11.5-14.5); White Blood Cell Count 5.3 10^3/uL (4.8-10.8)
[2024-06-07 16:39] LABS: ALT (SGPT) 27 U/L (0-50); AST (SGOT) 32 U/L (17-59); Albumin 4.2 g/dl (3.5-5.0); Alkaline Phosphatase 50 U/L (38-126); Blood Urea Nitrogen 20 mg/dl (9-20); Calcium 9.3 mg/dl (8.4-10.2); Carbon Dioxide 24 mmol/L (22-30); Chloride 103 mmol/L (98-107); Glucose 179 mg/dl (70-99); Potassium 5.1 mmol/L (3.5-5.1); Sodium 142 mmol/L (135-145); Total Bilirubin 0.5 mg/dl (0.2-1.3); Total Protein 6.4 g/dl (6.3-8.2); eGFR > 60.00
[2024-06-07 16:40] LABS: Urine Albumin Trace (Neg - Trace); Urine Bilirubin Negative (Negative); Urine Character Clear (Clear); Urine Color Yellow; Urine Glucose 1+ (Negative); Urine Ketone Negative (Negative); Urine Leukocyte Negative (Negative); Urine Nitrite Negative (Negative); Urine Occult Blood 3+ (Negative); Urine Urobilinogen Negative (Neg - 1+)
[2024-06-07 16:50] LABS: Urine Bacteria Few (Negative); Urine Red Blood Cell 26-30 /HPF (0-2)
[2024-06-07 18:44] VITALS: BP 157/71
[2024-06-07 18:49] VITALS: BP 157/71
[2024-06-07 19:00] VITALS: BP 149/65
--- NOTE | 2024-06-07 19:07 | ED.GENMED ---
History of Present Illness
General
Chief Complaint: Abdominal Pain
Source: patient
Exam Limitations: none
Time Seen by Provider: 06/07/24 18:56
History of Present Illness
History of Present Illness:
See MDM
Past History
Past History
ED Past Medical History: CAD, HTN, Hypercholesterolemia, NIDDM, ND, Other (Pituitary meningioma), Other (glaucoma, OA,) and Other (BPV)
ED Past Surgical History: Appendectomy and Other (Transsphenoidal resection of a pituitary meningioma)
Social History
Tobacco: Non-smoker
Alcohol: None
Drug: None
Living: with family
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
Family History
Family History: CAD
Phy Exam
Physical Exam
Physical Exam:
See MDM
Course
Orders/Labs/Results
Orders:
Orders
06/07/24 16:19
Complete Blood Count/With Diff Urgent
Comprehensive Metabolic Panel Urgent
Lactic Acid Urgent
Urine Culture Reflexed from UA [Urinalysis Reflex To Culture] Urgent
Date Specimen was Collected: 06/07/24
Time Specimen was Collected: 16:08
Urine Microscopic Reflex Cult Urgent
06/07/24 19:07
Ketorolac [Toradol] 30 mg IM NOW STA
Oxycodone/Acetaminophen [Percocet 5/325] 1 tablet PO NOW STA
Abnormal Lab Results
06/07/24
16:19
RBC 3.53 L 10^6/uL
(4.70-6.10)
Hgb 11.1 L g/dL
(13.0-18.0)
Hct 32.5 L %
(39.0-52.0)
MCH 31.4 H pg
(27.0-31.0)
RDW 14.8 H %
(11.5-14.5)
MPV 10.5 H fL
(7.4-10.4)
Absolute Monos (auto) 0.7 H 10^3/uL
(0.1-0.6)
Monocytes % 12.9 H %
(1.7-9.3)
Glucose 179 H mg/dl
(70-99)
Lactic Acid 2.1 H mmol/L
(0.7-2.0)
Ur Occult Blood Reflex 3+ A
(Negative)
Urine RBC 26-30 A /HPF
(0-2)
Urine Bacteria (Reflex) Few A
(Negative)
Urine Glucose 1+ A
(Negative)
06/07/24 16:19
06/07/24 16:19
Vital Signs
Initial and Last Documented VS:
Initial Vital Signs
Temp Pulse Resp BP Pulse Ox
98.3 F 68 18 125/65 99
06/07/24 16:04 06/07/24 16:04 06/07/24 16:04 06/07/24 16:04 06/07/24 16:04
Last Documented Vital Signs
Temp Pulse Resp BP Pulse Ox
98.3 F 82 16 149/65 100
06/07/24 16:04 06/07/24 18:49 06/07/24 18:49 06/07/24 19:00 06/07/24 19:00
MDM/Problems Addressed
Differential Diagnosis Includes:
HPI and MDM Narrative:
73-year-old male presenting with intermittent abdominal pain for the past few days. Patient has a history of kidney stones and states this feels similar. He had an outside CT which confirmed stone at right UVJ. Patient states this is associated
with increased urinary frequency. He follows with urology Dr. Zhu and states he was already on Flomax. Given the ongoing pain, he came in for further evaluation. On my assessment, blood work and urine was already obtained. There is no
significant abnormalities on his blood work and his urine shows no evidence of infection. Patient states he is actually feeling better. We discussed admission versus discharge and patient feels comfortable going home. Will start NSAIDs and
narcotics. Patient given a strainer. He has urology follow-up on Wednesday. We discussed return for worsening pain, uncontrolled vomiting or if he develops fevers
Physical exam
General: Well appearing and non-toxic
HEENT: protecting airway
Neck: appears supple
CV: No evidence of cyanosis
Resp: No accessory muscle use
Abd: Non-distended. Mild right suprapubic pain without rebound
Extremities: No deformities
Neuro: alert
Psych: Normal affect
Skin: Intact
Problems Addressed including Acute and Chronic Conditions affecting care:
1. Right-sided kidney stone
Acuity: acute
Prognosis: stable
Details: No evidence of kidney stone infection. Nausea and pain appear to be well-controlled. Patient states he feels comfortable going home. He has urology follow-up on Wednesday
Differential Diagnosis (but not limited to): UTI, kidney stone, acute appendicitis
Testing considered: Urine culture
Drug therapy (if applicable): OTC meds, please see d/c instruction regarding Rx drugs
Amount and/or Complexity of Data Reviewed
Clinical info obtained from: Patient
External data reviewed: N/A
Labs I independently reviewed (but not limited to): White blood cell count normal. Lactic acid mildly high at 2.1 but this is likely in setting of poor p.o. intake. He has no fever or white count or any evidence of sepsis
Radiology: The CT scan was personally and independently reviewed. In addition, official CT report reviewed.
Pulse Ox: not hypoxic
EKG independently reviewed: N/A
Studio Technician Video Operator: N/A
Critical Care: N/A
Risk of Complication:
Social Determinants of health: Good social support
Discussed with other providers: N/A
Escalation of Care includes Admit/Obs: After being observed in the Emergency Department, pt stable for discharge.
Occasional wrong word or 'sound a like' substitutions may have occurred due to the inherent limitations of voice recognition software. Read the chart carefully and recognize, using context, where substitutions have occurred.
*Critical Care Note
Total Time (30-74mins, 75-104mins- exclusive of procedures): Not Applicable
ED Attending Note
-
Portions of this chart may have been created with voice recognition software.� Occasional wrong word or��sound alike� substitutions may have occurred due to the inherent limitations of voice recognition software.
Discharge Plan
Departure
Patient Disposition: Home (Routine Discharge)
Date of Disposition: 06/07/24
Time of Disposition: 19:07
Patient with high blood pressure during this ER visit?: Yes
Discharge Problem:
Kidney stone on right side
Instructions: Kidney Stones (DC), BLOOD PRESSURE
Prescriptions:
New
diclofenac potassium 50 mg tablet
50 mg PO BID Qty: 20 0RF
ondansetron 4 mg Tablet,Disintegrating
4 mg PO BIDPRN PRN (Reason: nausea/vomiting) Qty: 10 0RF
oxycodone 5 mg tablet
5 mg PO Q8H PRN (Reason: Pain) Qty: 14 0RF
No Action
losartan 25 MG tablet
25 mg PO HS
rosuvastatin 20 MG tablet
20 mg PO Q48H
rosuvastatin [Crestor] 40 MG tablet
40 mg PO Q48H
glipizide 10 MG tablet
10 mg PO BID@0800,1700
atenolol 25 MG tablet
25 mg PO HS
pioglitazone 45 MG tablet
45 mg PO DAILY
aspirin 81 MG tablet,delayed release (DR/EC)
81 mg PO DAILY
bupropion HCl 150 MG tablet extended release 24 hr
150 mg PO DAILY
nitroglycerin 0.4 MG tablet, sublingual
0.4 mg sublingual [id number] PRN (Reason: chest pain) Qty: 25 10RF
metformin 1,000 MG tablet
1,000 mg PO BID@0800,1700
ondansetron 4 mg tablet,disintegrating
4 mg PO Q6H PRN (Reason: nausea and vomiting) Qty: 30 0RF
meclizine 25 MG tablet
25 mg PO TID PRN (Reason: vertigo) 20 Days Qty: 60 0RF
diazepam [Valium] 5 MG tablet
5 mg PO DAILY PRN (Reason: vertigo not relieved w/ mecliz) 15 Days Qty: 15 0RF
cefpodoxime 200 mg tablet
200 mg PO Q12H 8 Days Qty: 16 0RF
tamsulosin 0.4 mg capsule
0.4 mg PO DAILY Qty: 14 1RF
Activity Restrictions/Additional Instructions:
Please return for any worsening symptoms.
You may return at any time if you have further concerns.
Please keep your urology appointment on Wednesday.
You were given a prescription for narcotics. If you require this pain medicine, please take a daily [id number] stool softener to avoid constipation.
Thank you for choosing [facility].
Interventions
Interventions:
*Risk Screen - Suicide Last Done: 06/07/24 16:04
*General Assessment Last Done: 06/07/24 16:04
*Neglect/Abuse Screening Last Done: 06/07/24 16:04
*ED COVID-19 Vaccine History Last Done: 06/07/24 18:49
WP-Kogrtd-Cjiofjvttb Assessment Last Done: 06/07/24 18:49
Discharge Date and Time
Print Language: PERSIAN
[2024-06-07] MEDS: TORADOL 30 MG IM (19:20)
[2024-06-07] MEDS: PERCOCET 5/325 1 TABLET PO (19:22)
== END 2024-06-07 19:39 | disposition home or self-care (01) ==
LOC: EMR 15:50
PROVIDERS: Emergency Medicine; EMERGENCY PHYSICIAN Student in an Organized Health Care Education/Training Program; FAMILY PHYSICIAN Family Medicine
DX: N20.0 Calculus of kidney (principal); I25.10 Atherosclerotic heart disease of native coronary artery without angina pectoris; I10 Essential (primary) hypertension; E78.00 Pure hypercholesterolemia, unspecified; E11.9 Type 2 diabetes mellitus without complications; I25.2 Old myocardial infarction; H40.9 Unspecified glaucoma; M19.90 Unspecified osteoarthritis, unspecified site; Z82.49 Family history of ischemic heart disease and other diseases of the circulatory system; Z90.49 Acquired absence of other specified parts of digestive tract
CPT/HCPCS: 99282; 96372; 74176; 80053; 81003; 81015; 83605; 85025

== ENCOUNTER → 2024-06-16 06:29 | Day surgery (SDC) | payer MEDICARE, BC, SELFPAY | LOC: SDS 06:29 | PROVIDERS: ATTENDING PHYSICIAN Urology | DX: N20.1 Calculus of ureter (principal); Z53.8 Procedure and treatment not carried out for other reasons | CPT/HCPCS: 52356; 74018 ==

== ENCOUNTER → 2024-06-16 09:33 | Outpatient (REF) | payer MEDICARE, BC, SELFPAY | LOC: SDSPAT 09:33 | PROVIDERS: ATTENDING PHYSICIAN Urology; FAMILY PHYSICIAN Family Medicine | DX: N20.0 Calculus of kidney (principal) | CPT/HCPCS: 74018 ==

== ENCOUNTER → 2024-07-28 11:27 | Outpatient (REF) | payer MEDICARE, BC, SELFPAY ==
[2024-07-28 15:58] LABS: ALT (SGPT) 23 U/L (0-50); AST (SGOT) 24 U/L (17-59); Albumin 4.4 g/dl (3.5-5.0); Alkaline Phosphatase 44 U/L (38-126); Blood Urea Nitrogen 23 mg/dl (9-20); Calcium 9.5 mg/dl (8.4-10.2); Carbon Dioxide 24 mmol/L (22-30); Chloride 103 mmol/L (98-107); Glucose 179 mg/dl (70-99); HDL Cholesterol 60 mg/dl; LDL Cholesterol, Calculated 43 mg/dl; Sodium 140 mmol/L (135-145); Total Bilirubin 0.4 mg/dl (0.2-1.3); Total Cholesterol 121 mg/dl (50-199); Total Protein 6.9 g/dl (6.3-8.2); Triglyceride 93 mg/dl (10-149); Very Low Density Lipoprotein 18 mg/dl (0-30); eGFR > 60.00
[2024-07-28 16:13] LABS: Microalbumin, Random Urine 9.3 mg/dl (0.6-1.7); Microalbumin/creatinine Ratio 120.6 mg/g
== END ==
LOC: HWLAB 11:27
PROVIDERS: ATTENDING PHYSICIAN Internal Medicine Endocrinology, Diabetes & Metabolism; FAMILY PHYSICIAN Family Medicine
DX: E11.65 Type 2 diabetes mellitus with hyperglycemia (principal)
CPT/HCPCS: 36415; 80053; 80061; 82043; 82570; 83036

== ENCOUNTER → 2025-02-23 10:41 | Outpatient (REF) | payer MEDICARE, BC, SELFPAY ==
[2025-02-23 13:20] LABS: ALT (SGPT) 21 U/L (0-50); AST (SGOT) 22 U/L (17-59); Alkaline Phosphatase 40 U/L (38-126); Blood Urea Nitrogen 29 mg/dl (9-20); Calcium 9.7 mg/dl (8.4-10.2); Carbon Dioxide 27 mmol/L (22-30); Chloride 108 mmol/L (98-107); Glucose 159 mg/dl (70-99); Potassium 4.6 mmol/L (3.5-5.1); Sodium 139 mmol/L (135-145); Total Bilirubin 0.4 mg/dl (0.2-1.3); Total Protein 6.5 g/dl (6.3-8.2); eGFR 41.26
[2025-02-23 14:36] LABS: Glycohemoglobin (HgbA1c) 7.9 % (4.0-5.6)
== END ==
LOC: HWLAB 10:41
PROVIDERS: ATTENDING PHYSICIAN Internal Medicine Endocrinology, Diabetes & Metabolism; FAMILY PHYSICIAN Family Medicine
DX: E11.65 Type 2 diabetes mellitus with hyperglycemia (principal)
CPT/HCPCS: 36415; 80053; 83036

== ENCOUNTER → 2025-03-13 10:44 | Outpatient (REF) | payer MEDICARE, BC, SELFPAY ==
[2025-03-13 13:17] LABS: Blood Urea Nitrogen 27 mg/dl (9-20); Calcium 9.4 mg/dl (8.4-10.2); Carbon Dioxide 24 mmol/L (22-30); Chloride 108 mmol/L (98-107); Glucose 169 mg/dl (70-99); Potassium 4.5 mmol/L (3.5-5.1); Sodium 140 mmol/L (135-145); eGFR 52.09
== END ==
LOC: HWLAB 10:44
PROVIDERS: ATTENDING PHYSICIAN Internal Medicine Cardiovascular Disease; FAMILY PHYSICIAN Family Medicine
DX: N17.9 Acute kidney failure, unspecified (principal)
CPT/HCPCS: 36415; 80048

== ENCOUNTER → 2025-05-03 07:31 | Outpatient (REF) | payer MEDICARE, BC, SELFPAY | LOC: RCS 07:31 | PROVIDERS: ATTENDING PHYSICIAN Internal Medicine Cardiovascular Disease; FAMILY PHYSICIAN Family Medicine | DX: Z95.5 Presence of coronary angioplasty implant and graft (principal); I25.10 Atherosclerotic heart disease of native coronary artery without angina pectoris | CPT/HCPCS: 78452; 93017; A9500; J2785 ==

== ENCOUNTER → 2025-05-11 13:02 | Outpatient (REF) | payer MEDICARE, BC, SELFPAY | LOC: HWRAD 13:02 | PROVIDERS: ATTENDING PHYSICIAN Physician Assistant Medical | DX: R05.1 Acute cough (principal) | CPT/HCPCS: 71046 ==

== ENCOUNTER → 2025-05-22 13:54 | Outpatient (REF) | payer MEDICARE, BC, SELFPAY | LOC: HWRCS 13:54 | PROVIDERS: ATTENDING PHYSICIAN Internal Medicine Cardiovascular Disease; FAMILY PHYSICIAN Family Medicine | DX: I25.10 Atherosclerotic heart disease of native coronary artery without angina pectoris (principal); I42.9 Cardiomyopathy, unspecified | CPT/HCPCS: 93306 ==

== ENCOUNTER → 2025-06-29 13:44 | Outpatient (REF) | payer MEDICARE, BC, SELFPAY | LOC: MRI 13:44 | PROVIDERS: ATTENDING PHYSICIAN Family Medicine | DX: K76.9 Liver disease, unspecified (principal) | CPT/HCPCS: 74183; A9575 ==

== ENCOUNTER → 2025-09-04 09:45 | Outpatient (REF) | payer MEDICARE, BC, SELFPAY ==
[2025-09-04 11:24] LABS: Glycohemoglobin (HgbA1c) 8.1 % (4.0-5.9)
[2025-09-04 11:28] LABS: ALT (SGPT) 21 U/L (0-50); AST (SGOT) 21 U/L (17-59); Albumin 4.4 g/dl (3.5-5.0); Alkaline Phosphatase 49 U/L (38-126); Blood Urea Nitrogen 21 mg/dl (9-20); Calcium 9.6 mg/dl (8.4-10.2); Carbon Dioxide 28 mmol/L (22-30); Chloride 104 mmol/L (98-107); Glucose 141 mg/dl (70-99); HDL Cholesterol 62 mg/dl; LDL Cholesterol, Calculated 48 mg/dl; Potassium 5.0 mmol/L (3.5-5.1); Sodium 137 mmol/L (135-145); Total Protein 6.9 g/dl (6.3-8.2); Very Low Density Lipoprotein 15 mg/dl (0-30); eGFR > 60.00
[2025-09-04 12:04] LABS: Microalbumin, Random Urine 6.9 mg/dl (0.6-1.7)
== END ==
LOC: REG 09:45
PROVIDERS: ATTENDING PHYSICIAN Internal Medicine Endocrinology, Diabetes & Metabolism
DX: E11.65 Type 2 diabetes mellitus with hyperglycemia (principal)
CPT/HCPCS: 36415; 80053; 80061; 82043; 82570; 83036

== ENCOUNTER → 2025-09-19 11:21 | Outpatient (REF) | payer MEDICARE, BC, SELFPAY ==
[2025-09-19 13:21] LABS: ALT (SGPT) 22 U/L (0-50); AST (SGOT) 22 U/L (17-59); Albumin 4.3 g/dl (3.5-5.0); Alkaline Phosphatase 46 U/L (38-126); Blood Urea Nitrogen 24 mg/dl (9-20); Calcium 9.3 mg/dl (8.4-10.2); Carbon Dioxide 29 mmol/L (22-30); Chloride 102 mmol/L (98-107); Glucose 100 mg/dl (70-99); HDL Cholesterol 64 mg/dl; LDL Cholesterol, Calculated 56 mg/dl; Potassium 4.9 mmol/L (3.5-5.1); Sodium 136 mmol/L (135-145); Total Protein 7.0 g/dl (6.3-8.2); Very Low Density Lipoprotein 13 mg/dl (0-30); eGFR 56.93
== END ==
LOC: REG 11:21
PROVIDERS: ATTENDING PHYSICIAN Internal Medicine Cardiovascular Disease
DX: E78.00 Pure hypercholesterolemia, unspecified (principal)
CPT/HCPCS: 36415; 80053; 80061